=== PATIENT | female | born 1970 | race African-American/Black ===

== ENCOUNTER 2017-07-06 20:50 | Observation (INO) | payer OTHER ==
[~2017-07-06 20:50] MED LIST: APIX5TAB PO; CLIN1CAP5 PO; HYDR-2823 PO; PERC7.5T13 PO; VALT1TAB PO; VENTAER INH; VIST25CA PO; nebulizer INH
[2017-07-06] MEDS ORDERED: TEMAZEPAM 15 MG CAP PO PRN (21:00)
[2017-07-06] MEDS ORDERED: NITROGLYCERIN 0.4 MG SL 25 TABS/BTL SL PRN (22:00)
[2017-07-06] MEDS ORDERED: ALBUTEROL SULFATE 90 MCG/ACT HFA 8 GM INHALER INH PRN (22:00)
[2017-07-06] MEDS ORDERED: SODIUM CHLORIDE 0.9% FLUSH 10 ML FLUSH IV FLUSH PRN (22:00)
[2017-07-06] MEDS ORDERED: APIXABAN 5 MG TABLET PO ONE (22:00)
--- NOTE | 2017-07-06 22:07 | HHI.HP ---
HPI Service [facility] Hospitalists Primary Care Physician Unknown Admission Diagnosis cp Chief Complaint: cp Travel History International Travel<30 Days: No Contact w/Intl Traveler <30 Da: No History of Present Illness Pt is 47 yo with left leg dvt 4rs ago on anticoagulation, asthma, gerd who presented to [place] ED with cp. Pt says she has had ant/left side cp that feels like pinching sensation. It mostly comes on with exertion and relieved by rest. It did come on while driving today. Gets nauseated but denies sob...although deep breath makes her feel better. Has been under stress with of mother 3 months ago and father 2 weeks ago. denies association with eating and not repoducible. no pleurisy. ED did CTA and negative. sent her for cardiac eval. Review of Systems Other ant/left cp..pinching nausea stress Past Family Social History Past Medical History asthma gerd dvt left leg 4yrs ago. was on estrogen at the time and pt reports "negative hypercoag w/up" polyarthritis sickle cell per chart umbilical hernia repair x 2 toe surgery Reported Medications eliquis 5mg bid prilosec 20mg daily ventolin twice weekly on ave valtrex 500mg bid per [facility] chart. Allergies: Coded Allergies: Sulfa (Sulfonamide Antibiotics) (Unverified Allergy, Severe, hives, ) Family History mother with heart dz. "chf". pericardial effusion and "window procedure" father of "twisted intestines" Social History no tob/etoh Physical Exam Vital Signs heart reg lung cta abd s/nt ext no edema no pain to palpation ant chest wall no carotid bruit Caprini VTE Risk Assessment Caprini VTE Risk Assessment: Mod/High Risk (score >= 2) Caprini Risk Assessment Model Point Value = 1 Point Value = 2 Point Value = 3 Point Value = 5 Age 41-60 Minor surgery BMI > 25 kg/m2 Swollen legs Varicose veins or History of unexplained or recurrent spontaneous Oral contraceptives or hormone replacement Sepsis (< 1 month) Serious lung disease, including pneumonia (< 1 month) Abnormal pulmonary function Acute myocardial infarction Congestive heart failure (< 1 month) History of inflammatory bowel disease Medical patient at bed rest Age 61-74 Arthroscopic surgery Major open surgery (> 45 min) Laparoscopic surgery (> 45 min) Malignancy Confined to bed (> 72 hours) Immobilizing plaster cast Central venous access Age >= 75 History of VTE Family history of VTE Factor V Leiden Prothrombin [id number] Lupus anticoagulant Anticardiolipin antibodies Elevated serum homocysteine Heparin-induced thrombocytopenia Other congenital or acquired thrombophilia Stroke (< 1 month) Elective arthroplasty Hip, pelvis, or leg fracture Acute spinal cord injury (< 1 month) Prophylaxis Regimen Total Risk Factor Score Risk Level Prophylaxis Regimen 0-1 Low Early ambulation 2 Moderate Order ONE of the following: *Sequential Compression Device (SCD) *Heparin 5000 units SQ BID 3-4 Higher Order ONE of the following medications: *Heparin 5000 units SQ TID *Enoxaparin/Lovenox 40 mg SQ daily (WT < 150 kg, CrCl > 30 mL/min) *Enoxaparin/Lovenox 30 mg SQ daily (WT < 150 kg, CrCl > 10-29 mL/min) *Enoxaparin/Lovenox 30 mg SQ BID (WT < 150 kg, CrCl > 30 mL/min) AND/OR *Sequential Compression Device (SCD) 5 or more Highest Order ONE of the following medications: *Heparin 5000 units SQ TID (Preferred with Epidurals) *Enoxaparin/Lovenox 40 mg SQ daily (WT < 150 kg, CrCl > 30 mL/min) *Enoxaparin/Lovenox 30 mg SQ daily (WT < 150 kg, CrCl > 10-29 mL/min) *Enoxaparin/Lovenox 30 mg SQ BID (WT < 150 kg, CrCl > 30 mL/min) AND *Sequential Compression Device (SCD) Assessment and Plan Problem List: (1) Chest pain ICD Codes: R07.9 - Chest pain, unspecified Status: Acute Plan: 1. cp. worse with exertion. r/o obstructive cad. increased stress recently with of both parents 2. hx left leg dvt. on anticoagulation. cta chest neg for PE 3. gerd 4. asthma with no evidence on exam of exacerbation schedule lexiscan in AM 2d echo tele and ce overnight resume home medication if above neg then d/c home with pcp f/u. (2) Asthma ICD Codes: J45.909 - Unspecified asthma, uncomplicated Status: Chronic (3) GERD (gastroesophageal reflux disease) ICD Codes: K21.9 - Gastro-esophageal reflux disease without esophagitis Status: Chronic (4) DVT (deep venous thrombosis) ICD Codes: I82.409 - Acute embolism and thrombosis of unspecified deep veins of unspecified lower extremity Status: Chronic Adam Garcia MD Jul 06, 2017 22:07
[2017-07-06] MEDS ORDERED: ONDANSETRON HCL 4 MG/2 ML VIAL IV PUSH PRN (22:15)
[2017-07-06] MEDS ORDERED: ACETAMINOPHEN 325 MG TAB PO PRN (22:15)
[2017-07-06 22:30] VITALS: BP 124/55; PULSE 78; RESP 22; TEMP 98.4; O2SAT 99
[2017-07-06 23:00] VITALS: PULSE 79
[2017-07-06 23:56] LABS: CREATINE KINASE 81 U/L (26-192)
[2017-07-07] VITALS (16 sets, daily range): BP systolic 100–125; BP diastolic 63–83; PULSE 72–92; RESP 16–18; TEMP 97–98.2; O2SAT 97–100
[2017-07-07 04:24] LABS: AUTOMATED NEUTROPHIL # 2.2 TH/MM3 (1.8-7.7); BASOPHIL # 0.1 TH/MM3 (0-0.2); BASOPHIL % 1.3 % (0.0-2.0); EOSINOPHIL # 0.2 TH/MM3 (0-0.4); EOSINOPHIL % 4.5 % (0.0-4.0); HEMATOCRIT 35.8 % (35.0-46.0); HEMO FLAGS DIFF FINAL; LYMPH % 36.8 % (9.0-44.0); LYMPHOCYTE # 1.7 TH/MM3 (1.0-4.8); MEAN CELL VOLUME 87.9 FL (80.0-100.0); MEAN CORPUSCULAR HEMOGLOBIN 29.8 PG (27.0-34.0); MEAN CORPUSCULAR HGB CONC 33.9 % (32.0-36.0); MONO % 8.9 % (0.0-8.0); NEUT % 48.5 % (16.0-70.0); PLATELET COUNT 239 TH/MM3 (150-450); RED BLOOD COUNT 4.08 MIL/MM3 (4.00-5.30); WHITE BLOOD COUNT 4.5 TH/MM3 (4.0-11.0)
[2017-07-07 04:48] LABS: ANION GAP 9 MEQ/L (5-15); BICARBONATE 24.5 MEQ/L (21.0-32.0); BLOOD UREA NITROGEN 9 MG/DL (7-18); CHLORIDE 107 MEQ/L (98-107); GLOMERULAR FILTRATION RATE 113 ML/MIN (>89); POTASSIUM 3.2 MEQ/L (3.5-5.1); SODIUM (NA) 140 MEQ/L (136-145)
[2017-07-07 04:53] LABS: CREATINE KINASE 62 U/L (26-192)
[2017-07-07] MEDS ORDERED: POTASSIUM CHLORIDE 20 MEQ CONTROLLED RELEASE TAB PO ONE (07:30)
[2017-07-07] MEDS ORDERED: ACETAMINOPHEN 1000 MG/100 ML 100 ML IV ONE (08:00)
--- NOTE | 2017-07-07 08:37 | HHI.PR ---
Subjective Remarks had some cp overnight h/a now Objective Vitals heart reg lung cta abd s/nt ext no edema Vital Signs Date Time Temp Pulse Resp B/P (MAP) Pulse Ox O2 Delivery O2 Flow Rate FiO2 07/07/17 04:00 72 07/07/17 03:00 75 07/07/17 02:00 72 07/07/17 01:00 72 07/07/17 00:00 78 07/06/17 23:00 79 07/06/17 22:30 98.4 78 22 124/55 (78) 99 Result Diagram: 07/07/17 0325 07/07/175 A/P Problem List: (1) Chest pain ICD Codes: R07.9 - Chest pain, unspecified Status: Acute Plan: 1. cp. worse with exertion. r/o obstructive cad. increased stress recently with of both parents 2. hx left leg dvt. on anticoagulation. cta chest neg for PE 3. gerd 4. asthma with no evidence on exam of exacerbation schedule lexiscan today 2d echo tele and ce negative for ACS resume home medication if above neg then d/c home with pcp f/u. addendum: no event on telemetry of concern. lexiscan negative for ischemia echo. no pericardial effusion. pap ok. ef 65%. no major valvular problems cta chest. no pe. small amt of fluid ant sup mediastinum of unclear significance. no obvious lymphadenopathy/effusion/infection long talk with pt. under alot of stress with recent of 2 parents. I discussed the results of all of the above tests. I mentioned the fluid on CT but I have no reason to pursue invasive testing at this point. It is nonspecific. I have given her copies of her reports to take back to pcp. If warranted she could get a repeat ct of chest if symtoms reoccur. (2) Asthma ICD Codes: J45.909 - Unspecified asthma, uncomplicated Status: Chronic (3) GERD (gastroesophageal reflux disease) ICD Codes: K21.9 - Gastro-esophageal reflux disease without esophagitis Status: Chronic (4) DVT (deep venous thrombosis) ICD Codes: I82.409 - Acute embolism and thrombosis of unspecified deep veins of unspecified lower extremity Status: Chronic Adam Garcia MD Jul 07, 2017 08:37
[2017-07-07] MEDS ORDERED: APIXABAN 5 MG TABLET PO SCH (09:00)
[2017-07-07] MEDS ORDERED: SODIUM CHLORIDE 0.9% FLUSH 10 ML FLUSH IV FLUSH SCH (09:00)
[2017-07-07] MEDS ORDERED: PANTOPRAZOLE SOD 40 MG DELAYED RELEASE TAB PO SCH (09:00)
--- NOTE | 2017-07-07 10:26 | EKG ---
Date Performed: 07/07/2017 Time Performed: 04:18:06 PTAGE: 47 years EKG: Sinus rhythm Left axis deviation Borderline ECG PREVIOUS TRACING : 07/06/2017 22.45 DOCTOR: Josafat Seymour Interpretating Date/Time 07/07/2017 10:24:21
--- NOTE | 2017-07-07 10:29 | EKG ---
Date Performed: 07/06/2017 Time Performed: 22:45:24 PTAGE: 47 years EKG: Sinus arrhythmia Possible left atrial abnormality Left axis deviation Incomplete RBBB Left ventricular hypertrophy Anterior T wave changes are nonspecific Abnormal ECG NO PREVIOUS TRACING DOCTOR: Josafat Seymour Interpretating Date/Time 07/07/2017 10:27:02
[2017-07-07] MEDS ORDERED: REGADENOSON INJ 0.4 MG/5 ML SYR ONE (11:01)
--- NOTE | 2017-07-07 14:52 | ECHRPT ---
Indication: cp CONCLUSIONS The left ventricular systolic function is hyperdynamic with an estimated ejection fraction in the ra nge of 65- 70%. Normal left ventricular size. No regional wall motion abnormalities are present. [id number] mitral valve regurgitation. There is mild tricuspid valve regurgitation. The estimated pulmonary arterial pressure is 30.8 mmHg. BP: / HR: Rhythm: MEASUREMENTS (Male / Female) Normal Values Technical Quality:Good 2D ECHO LV Diastolic Diameter PLAX 4.3 cm 4.2 - 5.9 / 3.9 - 5.3 cm LV Systolic Diameter PLAX 2.9 cm IVS Diastolic Thickness 1.2 cm 0.6 - 1.0 / 0.6 - 0.9 cm LVPW Diastolic Thickness 0.9 cm 0.6 - 1.0 / 0.6 - 0.9 cm LV Relative Wall Thickness 0.5 RV Internal Dim ED PLAX 2.6 cm M-MODE Aortic Root Diameter MM 3.1 cm LA Systolic Diameter MM 2.6 cm LA Ao Ratio MM 0.8 AV Cusp Separation MM 2.2 cm DOPPLER Mitral E Point Velocity 66.6 cm/s Mitral A Point Velocity 56.8 cm/s Mitral E to A Ratio 1.2 LV E' Lateral Velocity 8.0 cm/s Mitral E to LV E' Lateral Ratio 8.3 LV E' Septal Velocity 10.5 cm/s Mitral E to LV E' Septal Ratio 6.3 TR Peak Velocity 228.0 cm/s TR Peak Gradient 20.8 mmHg Right Atrial Pressure 10.0 mmHg Pulmonary Artery Systolic Pressu 30.8 mmHg Right Ventricular Systolic Press 30.8 mmHg FINDINGS LEFT VENTRICLE The left ventricular systolic function is hyperdynamic with an estimated ejection fraction in the ra nge of 65- 70%. Normal left ventricular size. No regional wall motion abnormalities are present. RIGHT VENTRICLE Normal right ventricular size and systolic function. LEFT ATRIUM The left atrial size is normal. RIGHT ATRIUM The right atrial size is normal. ATRIAL SEPTUM Normal atrial septal thickness without atrial level shunting by limited color doppler interrogation. AORTA The aortic root and proximal ascending aorta are normal in size on limited imaging. MITRAL VALVE [id number] mitral valve regurgitation. Structurally normal mitral valve. AORTIC VALVE Trileaflet aortic valve. No aortic valve stenosis or regurgitation. TRICUSPID VALVE There is mild tricuspid valve regurgitation. The estimated pulmonary arterial pressure is 30.8 mmHg. Structurally normal tricuspid valve. PULMONARY VALVE No pulmonary valve regurgitation or stenosis. VESSELS The inferior vena cava is normal in size. PERICARDIUM No pericardial effusion. Josafat Seymour MD (Electronically Signed) Final Date:07 July 2017 14:51
[2017-07-07] MEDS ORDERED: PRIL20TA2 PO (16:02)
[2017-07-07] MEDS ORDERED: VALT500T PO (16:02)
[2017-07-07] MEDS ORDERED: VENTAER INH (16:02)
--- NOTE | 2017-07-07 16:02 | HHI.DCPOC ---
Discharge Care Plan Diagnosis: (1) Chest pain (2) DVT (deep venous thrombosis) (3) GERD (gastroesophageal reflux disease) (4) Asthma Goals to Promote Your Health * To prevent worsening of your condition and complications * To maintain your health at the optimal level Directions to Meet Your Goals Take your medications as prescribed Follow your dietary instruction Follow activity as directed Keep your appointments as scheduled Take your immunizations and boosters as scheduled If your symptoms worsen call your PCP, if no PCP go to Urgent Care Center or Emergency Room Smoking is Dangerous to Your Health. Avoid second hand smoke Call the 24-hour hour crisis hotline for domestic abuse at Adam Garcia MD Jul 07, 2017 16:02
--- NOTE | 2017-07-12 15:47 | RADRPT ---
EXAM DATE/TIME: 07/07/2017 10:50 [place] COMPARISON: No previous studies available for comparison. INDICATIONS : Chest pain. Angina. DOSE: 27.3 mCi Tc99m Myoview at stress. 8.6 mCi Tc99m Myoview at rest. 0.4 mg Lexiscan STRESS SYMPTOMS: Chest pain and dyspnea. EJECTION FRACTION: 65% MEDICAL HISTORY : Sickle cell disease. Deep venous thrombosis. SURGICAL HISTORY : Hysterectomy. Cholecystectomy. ENCOUNTER: Initial ACUITY: 1 day PAIN SCALE: 2/10 LOCATION: Bilateral chest TECHNIQUE: The patient underwent pharmacologic stress with infusion of prescribed dose. Continuous ECG tracing was monitored during stress. Gated SPECT imaging was performed after stress and conventional SPECT i maging was performed at rest. The examination was performed on a SPECT/CT scanner, both attenuation and non-corrected datasets were reviewed. FINDINGS: DISTRIBUTION: The maximum perfused segment at stress is in the lateral wall. PERFUSION STUDY: The pattern of perfusion at stress is within normal limits, with regional variations in perfusion wit hin 30%. No evidence of redistribution. Summed stress score is 4. GATED STUDY: There is intact wall motion and thickening without hypokinetic or dyskinetic segments. CONCLUSION: 1. No evidence of stress-induced ischemia. 2. At wall motion with 65% ejection fraction. RISK CATEGORY: Low (<1% Annual Mortality Rate) Pérez Butler MD on July 07, 2017 at 12:38 Board Certified Radiologist. This report was verified electronically.
== END 2017-07-07 16:50 | disposition home or self-care (01) ==
LOC: NEDDLT 20:50 → INTOOBSV 21:00 → HCIS 21:00
PROVIDERS: ADMIT Hospitalist; ATTEND Hospitalist
DX: R07.9 Chest pain, unspecified (principal); J45.909 Unspecified asthma, uncomplicated; Z86.718 Personal history of other venous thrombosis and embolism; Z79.01 Long term (current) use of anticoagulants; K21.9 Gastro-esophageal reflux disease without esophagitis; R94.31 Abnormal electrocardiogram [ECG] [EKG]
CPT/HCPCS: 71010; 71275; 78452; 80048; 82550; 83735; 84484; 85025; 85610; 85730; 93005; 93017; 93306; 96365; 99285; A9502; G0378; J0131; J2785; Q9967